=== PATIENT | male | born 1980 | race Caucasian/White ===

== ENCOUNTER 2017-06-16 10:48 | Emergency (ER) | payer SELFPAY ==
[~2017-06-16] VITALS: Ht 177.8 cm; Wt 80.0 kg
[2017-06-16 10:49] VITALS: BP 156/98; PULSE 69; RESP 15; TEMP 98.4; O2SAT 98
--- NOTE | 2017-06-16 12:06 | PD ---
HPI Chief Complaint: Cold / Flu Symptoms Time Seen by Provider: 12:02 Travel History International Travel<30 days: No Contact w/Intl Traveler<30days: No Traveled to known affect area: No History of Present Illness HPI 37-year-old male presents emergency Department with complaint of nasal congestion and occasional cough for the last 2-3 days. Denies fever, sore throat, ear pain, chest tightness, chest congestion, shortness of breath, wheezing. Denies abdominal pain or vomiting. His is sickle cell and wants to be evaluated because he thinks he is getting what she has. Has been taking DayQuil and NyQuil for symptom management. Symptoms are mild in severity. Has no other medical complaints. No known allergies. No other modifying factors or associated signs and symptoms. History Social History Alcohol Use: Yes (occ) Tobacco Use: Yes (1/4 pack a day ) Allergies-Medications (Allergen,Severity, Reaction): Coded Allergies: No Known Allergies (Unverified , 06/16/17) Review of Systems Except as stated in HPI: all other systems reviewed are Neg Physical Exam Narrative GENERAL: Well-nourished, well-developed male patient, in no acute distress; afebrile, nontoxic-appearing SKIN: Warm and dry. No rash. HEAD: Atraumatic. Normocephalic. EYES: Pupils equal and round. No scleral icterus. No injection or drainage. ENT: Mucosa pink and moist. No erythema or exudates. No uvular edema. No uvular , palatal, or tonsillar deviation. Airway patent. EARS: Bilateral pinnae and external canals appear within normal limits. Bilateral tympanic membranes without erythema, dullness or perforation. NECK: Trachea midline. No lymphadenopathy. CARDIOVASCULAR: Regular rate and rhythm. No murmur appreciated. RESPIRATORY: No accessory muscle use. Clear to auscultation. Breath sounds equal bilaterally. No retractions or tachypnea. GASTROINTESTINAL: Flat. MUSCULOSKELETAL: No obvious deformities. No clubbing. No cyanosis. No edema. NEUROLOGICAL: Awake and alert. Oriented 3. No obvious cranial nerve deficits. Motor grossly within normal limits. Normal speech. Moves all extremities. 5/5 strength to all extremities. PSYCHIATRIC: Appropriate mood and affect; insight and judgment normal. Data Data Last Documented VS Vital Signs Date Time Temp Pulse Resp B/P (MAP) Pulse Ox O2 Delivery O2 Flow Rate FiO2 06/16/17 10:49 98.4 69 15 156/98 [phone] MDM Medical Screen Exam Complete: Yes Emergency Medical Condition: No Differential Diagnosis Viral illness Narrative Course Patient complaining of nasal congestion and occasional cough for the last 2-3 days. Patient is afebrile and nontoxic-appearing. Denies fever, vomiting. Patient denies sore throat, body aches and fever and I feel it is not necessary to screen for rapid strep or influenza at this time. Discussed viral illness and symptom management. Vital signs are stable and the patient is stable for outpatient follow-up and treatment. The pateint has no urgent or emergent medical complaints. There is no emergent or urgent medical need at this time. I [facility] the [facility]. A medical screening exam was performed: At the time of evaluation the presenting medical condition was determined not to be of an emergent nature. The patient was given the option of receiving additional care, but declined. Patient was given options for additional community resources from which to obtain care. The Patient Has Been advised to seek medical attention for their presenting complaint. The patient has been advised to return to the ER at any time if an emergent condition develops. Primary Impression: Encounter for medical screening examination Condition: Stable Magaly Gallardo Jun 16, 2017 12:06
== END 2017-06-16 12:10 | disposition left against medical advice (07) ==
LOC: NETRI 10:48
DX: Z00.8 Encounter for other general examination (principal)
CPT/HCPCS: 99281